=== PATIENT | female | born 1935 | race Two or more races ===

== ENCOUNTER 2017-02-17 10:00 | Outpatient (RCR) ==
--- NOTE | 2017-02-01 14:43 | RS.OPPTEV2 ---
Date of Note: 02/01/17 Visit #: 1 Date of Evaluation: 02/01/17 Payer Source: MEDICARE Surgery Performed?: No Treatment Diagnosis: Left lower back pain History of Condition/Mechanism of Injury:: Patient began having lower back pain in December. She is not sure of what she did but her and her nadlvarv-gr-tnr think it maybe the way she has been sitting in her recliner at home. She lives alone but has children who live close by and check on her and help her often. She reports she hurts unless she is lying down. Sitting is better but standing or walking she has sharp pain which is more on the left lumbar area. She states she fell ~ 2 weeks ago and this may have contributed to her back pain. She states she was able to get herself up off of the ground. She was taken to the ER by family 2-3 weeks ago. No fx was found at that time. Prior Level of Function.....Patient was independent with: ADL's, Self Care, Work /Vocation, Caregiving, Ambulation/Mobility, Community Integration/Access Functional Limitations: Lifting, Carrying, Standing, Bending, Squatting, Ambulation Treatment Side (optional): Bilateral Medical History Medical History: Hypertension, Arthritis Surgical History: Cholecystectomy, Hysterectomy, , CABG Surgical History Comments:: Pacemaker, cardiac stent, CABG Hx Home Medications: Lasix, Plavix, Lisinipril, Metapropranolm, Vit D & muscle relaxer Pain Assessment - Pain Description Pain Location: Center of lumbar spine and left paraspinals > right. Pain Description: Sharp Current Pain Intensity: 0/10 Worst Pain Intensity: Has to lay down Functional Outcome Measure Oswestry LBP: 19 (38% disability) - G Codes & Severity Modifier G Codes & Modifier: Mobility, Walking & Moving Around: Current: CJ. Goal: CI Source of G Code score: Oswestry LBP Scale. Observation - Observation Inspection: Patient was accompanied by her vezywwnu-lf-kfk and who assists her with her medication. She states she gave the pt a muscle relaxer this morning not thinking about her PT appointment today. Pt was very lethargic and evaluation today was limited. Posture: Increased Lumbar Lordosis Gait - Gait Pattern General Gait Pattern Observation: Antalgic Gait, Uneven [place], Decrease Stride Lngth (R), Decrease Stride Lngth (L) General Muscle Strength: LLE strength grossly 3/5 in the hips and knee 4/5. The RLE was 4+/5 grossly. - ROM Lumbar Flexion: Hand reach to Mid-Thighs Comments: Increased pain with all movements. Palpation Palpation Findings: Tenderness (Moderate pain to palpation of the lumbar paraspinals L > R. ) Sensation - Sensation Sensation Description: Within Normal Limits Balance - Standing Balance Static Standing Balance: Good Dynamic Standing Balance: Fair Interventions - Exercise/Activities/Manual Therapy Exercises/Activities: na Manual Therapy: na - Charges Total Direct Minutes: 45 Total Treatment Time: 45 Procedures billed for this date of service:: PT Mirna (Medium) Assessment Assessment: Lower back pain causing decreased safety with mobility and balance. Recent fall reported in her yard. Pain with lumbar ROM and weakness of core and BLEs. Patient Education: Education of diagnosis, Body/Joint mechanics, Home Safety, Education of Plan of Care Rehab Potential: Good Short Term Goals Goal #1: Independent with basic HEP for lumbar ROM. Goal to be met by: 02/18/17 Goal #2: Pain is able to dress herself w/o increased LBP Goal to be met by: 02/18/17 Goal #3: Patient walks in her home with only minimal LBP. Goal to be met by: 02/18/17 [employer] Goals Goal #1: Oswestry LBP Score decreased to 10. Goal to be met by: 03/04/17 Goal #2: Patient ambulates with normalized gt pattern and equal WB/WS on BLEs. Goal to be met by: 03/04/17 Goal #3: Independent in at [place] to continue with spine health. Goal to be met by: 03/04/17 Goal #4: 5/5 BLE strength to improve stability in WBing Goal to be met by: 03/04/17 Plan - Treatment to be Provided Procedures: Therapeutic Exercises, Therapeutic Activity, Gait Training, Manual Therapy, Patient Education Modalities: Electrical Stimulation, Ultrasound/Phonophoresis, Class IV Laser, Cryotherapy, Hot Packs - Treatment Plan Frequency: 3 X week Duration: 6 weeks ORDER # VISITS AND/OR THROUGH DATE: 03/11/2017 - Treatment Code (1) Lower back pain Qualifiers: Chronicity: chronic Back pain laterality: bilateral Sciatica presence: without sciatica Qualified Description: Chronic bilateral low back pain without sciatica Qualifier Code(s): (M54.5) Low back pain, ( G89.29) Other chronic pain (2) Muscle weakness (generalized) Comments: M62.81
--- NOTE | 2017-02-03 14:54 | RS.OPPTDN ---
Subjective Date of Note: 02/03/17 Visit #: 2 Date of Evaluation: 02/01/17 Payer Source: MEDICARE Treatment Diagnosis: Left lower back pain Current Subjective/complaints:: Patient reports the L side of her back still bothers more than the R side.She is pleasant and cooperative. Pain Assessment - Pain Description Pain Location: Center of lumbar spine and left paraspinals > right. Pain Description: Sharp Current Pain Intensity: not rated today - Treatment Modality: Electrical Stim Unattended Parameters/Method Applied: 20 mins. high volt to lumbar area,channel 1 @ 100pv, channel 2 @ 75 pv. Patient Position: Supine - Heat/Cryotherapy Treatment: Hot Pack (concurrent with e-stim) Interventions - Exercise/Activities/Manual Therapy Exercises/Activities: 15 mins. of gentle stretches,SKTC,LTR and hamstring stretches in shortened ROM. Total minutes of Exercise: 15 Manual Therapy: na Total minutes of Manual Therapy: 0 - Charges Total Direct Minutes: 15 Total Treatment Time: 35 Procedures billed for this date of service:: hp,e-stim,ex 1 Assessment: Patient very guarded with exercises today,reports increased pain with any motion today.Discussed with patient and her daughter about focusing more on pain control,and we will progress exercises as she can tolerate. Patient Education: Education of diagnosis, Body/Joint mechanics, Home Exercise Program, Home Safety, Activity Modification, Education of Plan of Care Short Term Goals Goal #1: Independent with basic HEP for lumbar ROM. Goal to be met by: 02/18/17 Goal #2: Pain is able to dress herself w/o increased LBP Goal to be met by: 02/18/17 Goal #3: Patient walks in her home with only minimal LBP. Goal to be met by: 02/18/17 Residential Goals Goal #1: Oswestry LBP Score decreased to 10. Goal to be met by: 03/04/17 Goal #2: Patient ambulates with normalized gt pattern and equal WB/WS on BLEs. Goal to be met by: 03/04/17 Goal #3: Independent in [place] at [place] to continue with spine health. Goal to be met by: 03/04/17 Goal #4: 5/5 BLE strength to improve stability in WBing Goal to be met by: 03/04/17 Plan PLAN OF CARE EXPIRES ON:: 03/11/17 ORDER # VISITS AND/OR THROUGH DATE: 03/11/2017 PLAN: Continue Plan of Care
--- NOTE | 2017-02-07 16:22 | RS.OPPTDN ---
Subjective Date of Note: 02/07/17 Visit #: 3 Date of Evaluation: 02/01/17 Payer Source: MEDICARE Treatment Diagnosis: Left lower back pain Current Subjective/complaints:: Patient's daughter tries to answer questions for Mayi as she replies she "does not know " in reference to pain or if it was better with treatment. She did not take a muscle relaxer today, so her daughter says her gait is better. Pain Assessment - Pain Description Pain Location: Center of lumbar spine and left paraspinals > right. Pain Description: Sharp Current Pain Intensity: not rated today - Treatment Modality: Electrical Stim Unattended Parameters/Method Applied: hivolt 4 large pads @ ch2:90- ch2:115 pk volts x 20 mins to lumbar paraspinals and SI joints channel 1 on R and channel 2 on L. Patient Position: Sitting - Heat/Cryotherapy Treatment: Hot Pack (20 mins with estim) Interventions - Exercise/Activities/Manual Therapy Exercises/Activities: 15 mins. of gentle stretches,SKTC,LTR and hamstring stretches in shortened ROM. Patient performs pillow squeezes. Manual Therapy: na - Charges Total Direct Minutes: 15 Total Treatment Time: 35 Procedures billed for this date of service:: hp, estim ( un), ex Assessment: Patient offers little information about her pain, location, or progress, but daughter reports she sees she is getting up better out of the bed and chair. Patient Education: Education of diagnosis, Body/Joint mechanics, Home Exercise Program, Home Safety, Activity Modification, Education of Plan of Care Patient demonstrates compliance with HEP?: Yes Short Term Goals Goal #1: Independent with basic HEP for lumbar ROM. Goal to be met by: 02/18/17 Goal #2: Pain is able to dress herself w/o increased LBP Goal to be met by: 02/18/17 Goal #3: Patient walks in her home with only minimal LBP. Goal to be met by: 02/18/17 [employer] Goals Goal #1: Oswestry LBP Score decreased to 10. Goal to be met by: 03/04/17 Goal #2: Patient ambulates with normalized gt pattern and equal WB/WS on BLEs. Goal to be met by: 03/04/17 Goal #3: Independent in [place] at [place] to continue with spine health. Goal to be met by: 03/04/17 Goal #4: 5/5 BLE strength to improve stability in WBing Goal to be met by: 03/04/17 Plan PLAN OF CARE EXPIRES ON:: 03/11/17 ORDER # VISITS AND/OR THROUGH DATE: 03/11/2017 PLAN: Progress Exercises
--- NOTE | 2017-02-09 16:24 | RS.OPPTDN ---
Subjective Date of Note: 02/09/17 Visit #: 4 Date of Evaluation: 02/01/17 Payer Source: MEDICARE Treatment Diagnosis: Left lower back pain Current Subjective/complaints:: Patient is able to rise from waiting room chair better and daughter reports improvement with the way she gets around. Pain Assessment - Pain Description Pain Location: Center of lumbar spine and left paraspinals > right. Pain Description: Sharp Current Pain Intensity: not rated today - Treatment Modality: Electrical Stim Unattended Parameters/Method Applied: hivolt 4 large pads controlled seperately from each side @ 110 pk volts x 20 mins Patient Position: Sitting - Heat/Cryotherapy Treatment: Hot Pack (20 mins with estim) Interventions - Exercise/Activities/Manual Therapy Exercises/Activities: 17mins. of gentle stretches,SKTC,LTR, Piriformis, and hamstring stretches bilaterally. Patient performs pillow squeezes. Manual Therapy: na - Charges Total Direct Minutes: 17 Total Treatment Time: 37 Procedures billed for this date of service:: hp, estim (un), ex Assessment: Added pillow squeezes for HEP. Grimacing with pillow squeezes and needed ongoing commands. Patient demonstrating increased ease with sit to stand transfers, but does require slight assistance with supine to sit and cues for log rolling. Ambulations appears more steady and daughter self reports. Unsure if treatment is helping back pain due to vague reports and patient unable to assess correctly. Patient Education: Education of diagnosis, Body/Joint mechanics, Home Exercise Program, Home Safety, Activity Modification, Education of Plan of Care Short Term Goals Goal #1: Independent with basic HEP for lumbar ROM. Goal to be met by: 02/18/17 Goal #2: Pain is able to dress herself w/o increased LBP Goal to be met by: 02/18/17 Goal #3: Patient walks in her home with only minimal LBP. Goal to be met by: 02/18/17 [facility] Goals Goal #1: Oswestry LBP Score decreased to 10. Goal to be met by: 03/04/17 Goal #2: Patient ambulates with normalized gt pattern and equal WB/WS on BLEs. Goal to be met by: 03/04/17 Goal #3: Independent in [place] at [place] to continue with spine health. Goal to be met by: 03/04/17 Goal #4: 5/5 BLE strength to improve stability in WBing Goal to be met by: 03/04/17 Plan PLAN OF CARE EXPIRES ON:: 03/11/17 ORDER # VISITS AND/OR THROUGH DATE: 03/11/2017 PLAN: Progress Exercises
--- NOTE | 2017-02-15 09:42 | RS.OPPTDN ---
Subjective Date of Note: 02/11/17 Visit #: 5 Date of Evaluation: 02/01/17 Payer Source: MEDICARE Treatment Diagnosis: Left lower back pain Current Subjective/complaints:: Patient's daughter reports her Mom is getting up /down better.Patient feels her pain is ,"tolerable". Pain Assessment - Pain Description Pain Location: Center of lumbar spine and left paraspinals > right. Pain Description: Sharp Pain Description: tolerable Current Pain Intensity: not rated today - Treatment Modality: Electrical Stim Unattended Parameters/Method Applied: 20 mins. high volt,channel 1 @ 70 pv,channel 2 @ 75 pv. Patient Position: Sitting - Heat/Cryotherapy Treatment: Hot Pack (concurrent with e-stim) Interventions - Exercise/Activities/Manual Therapy Exercises/Activities: 20 mins. of gentle stretches,SKTC,LTR, Piriformis, and hamstring stretches bilaterally. Total minutes of Exercise: 20 Manual Therapy: na Total minutes of Manual Therapy: 0 HOME EXERCISE PROGRAM: SKTC,pelvic tilts,LTR,hamstring stretches,piriformis stretches(with daughter's assist) as patient has dementia - Charges Total Direct Minutes: 20 Total Treatment Time: 40 Procedures billed for this date of service:: hp,e-stim,ex 1 Assessment: Patient reports stretch discomfort ,but no sharp pain reported.Her daughter reports Mrs. Keating appears to be more mobile at home ,with less assist needed for transfers. Patient Education: Education of diagnosis, Body/Joint mechanics, Home Exercise Program, Home Safety, Activity Modification, Education of Plan of Care Patient demonstrates compliance with HEP?: Yes Short Term Goals Goal #1: Independent with basic HEP for lumbar ROM. Goal to be met by: 02/18/17 Progress towards Goal:: Progressing Goal #2: Pain is able to dress herself w/o increased LBP Goal to be met by: 02/18/17 Progress towards Goal:: Progressing Goal #3: Patient walks in her home with only minimal LBP. Goal to be met by: 02/18/17 Progress towards Goal:: Progressing [facility] Goals Goal #1: Oswestry LBP Score decreased to 10. Goal to be met by: 03/04/17 Goal #2: Patient ambulates with normalized gt pattern and equal WB/WS on BLEs. Goal to be met by: 03/04/17 Goal #3: Independent in [place] at [place] to continue with spine health. Goal to be met by: 03/04/17 Goal #4: 5/5 BLE strength to improve stability in WBing Goal to be met by: 03/04/17 Plan PLAN OF CARE EXPIRES ON:: 03/11/17 ORDER # VISITS AND/OR THROUGH DATE: 03/11/2017 PLAN: Continue Plan of Care
--- NOTE | 2017-02-15 09:44 | RS.CXNS ---
Date of scheduled appointment: 02/15/17 Type: Cancel (Patient has dental appt.)
--- NOTE | 2017-02-17 11:58 | RS.OPPTDN ---
Subjective Date of Note: 02/17/17 Visit #: 6 Date of Evaluation: 02/01/17 Payer Source: MEDICARE Treatment Diagnosis: Left lower back pain Current Subjective/complaints:: Patient expresses she does not know why she is here and when asked, unable to say if she had pain and where. Qotsksom-yd-kab says she seems to get up better, but doesn't really know about her pain. She also says she requested ([id number]) only heat and exercises. Pain Assessment - Pain Description Pain Location: unable to report intensity or location Pain Description: Sharp Pain Description: tolerable - Heat/Cryotherapy Treatment: Hot Pack (20 mins to mid to low back in sitting) Interventions - Exercise/Activities/Manual Therapy Exercises/Activities: 20 mins. of gentle stretches,SKTC,LTR, Piriformis, and hamstring stretches bilaterally. Pillow squeezes, hip abd in hooklying with red tband, bridging (x 5), SAQ 1#, alternate LE lift with 1# each leg all x 10. All therex performed with intermittent grimacing, but at inappropriate timing or range. Mayi needed constant verbal and tactile cueing to perform. Provided HEP and red tband for her children to assist with. Manual Therapy: na HOME EXERCISE PROGRAM: SKTC,pelvic tilts,LTR,hamstring stretches,piriformis stretches(with daughter's assist) as patient has dementia - Charges Total Direct Minutes: 20 Total Treatment Time: 40 Procedures billed for this date of service:: hp, ex Assessment: Patient unable to give responses to back pain or progress with sessions so far. Zcgactoc-mp-qow assesses that Mayi is rising from therapy chairs better, but of course is not able to speak for her pain level. Patient needed constant cueing during exercises today. Some where given for home for her adult children to help her with when they are at her house. She lives alone , but family is fairly close by. She would benefit from home health services to assess any safety concerns around her home and perhaps other services. Patient Education: Education of diagnosis, Body/Joint mechanics, Home Exercise Program, Home Safety, Activity Modification, Education of Plan of Care Short Term Goals Goal #1: Independent with basic HEP for lumbar ROM. Goal to be met by: 02/18/17 Progress towards Goal:: Progressing Goal #2: Pain is able to dress herself w/o increased LBP Goal to be met by: 02/18/17 Progress towards Goal:: Progressing Goal #3: Patient walks in her home with only minimal LBP. Goal to be met by: 02/18/17 Progress towards Goal:: Progressing Nursing Professor Goals Goal #1: Oswestry LBP Score decreased to 10. Goal to be met by: 03/04/17 Goal #2: Patient ambulates with normalized gt pattern and equal WB/WS on BLEs. Goal to be met by: 03/04/17 Goal #3: Independent in [place] at [place] to continue with spine health. Goal to be met by: 03/04/17 Goal #4: 5/5 BLE strength to improve stability in WBing Goal to be met by: 03/04/17 Plan PLAN OF CARE EXPIRES ON:: 03/11/17 ORDER # VISITS AND/OR THROUGH DATE: 03/11/2017 PLAN: Plan for Discharge
--- NOTE | 2017-03-11 15:18 | RS.OPPTDC ---
Date of Discharge: 02/17/17 Date of Evaluation: 02/01/17 Number of Visits: 6 Treatment Diagnosis: Left lower back pain Current Complaints/Gains: Patient is unable to give subjective feedback to questions pertaining to pain level or perceived improvement or lack of improvement with mobility. She has stated on most visits that she does not know why she is here for therapy. Patient's ivostxur-fy-sdy reports that Ms. Keating's transfers seem to have improved. Pain Assessment - Pain Description Pain Location: unable to report intensity or location Functional Outcome Measure Oswestry LBP: 19 - G Codes & Severity Modifier G Codes & Modifier: Mobility D/C CJ. Mobility goal CI Source of G Code score: Oswestry LBP scale ( same as evaluation) Interventions - Exercise/Activities/Manual Therapy Exercises/Activities: NA Manual Therapy: na HOME EXERCISE PROGRAM: SKTC,pelvic tilts,LTR,hamstring stretches,piriformis stretches(with daughter's assist) as patient has dementia - Charges Total Direct Minutes: NA Total Treatment Time: NA Procedures billed for this date of service:: NA Assessment Assessment: Ms. Keating consistently demonstrates difficulty giving subjective feedback regarding her pain level. She does not seem to know why she is having therapy. She has required constant verbal cues with exercises, as she shows very little carry over from one visit to the next. She has exercises for her family to help her with. She lives alone and she shows the need for Home Health services for safety and education in the home. We are unable to justify continued therapy in this setting due to lack of carry over with instructions and lack of information subjectively due to cognitive status. Short Term Goals Goal #1: Independent with basic HEP for lumbar ROM. Goal to be met by: 02/18/17 Progress towards Goal:: Met (with help of family) Goal #2: Pain is able to dress herself w/o increased LBP Goal to be met by: 02/18/17 Progress towards Goal:: Not Met Goal #3: Patient walks in her home with only minimal LBP. Goal to be met by: 02/18/17 Progress towards Goal:: Not Met Nursing Home Goals Goal #1: Oswestry LBP Score decreased to 10. Goal to be met by: 03/04/17 Progress towards goal: Not Met Goal #2: Patient ambulates with normalized gt pattern and equal WB/WS on BLEs. Goal to be met by: 03/04/17 Progress towards goal: Not Met Goal #3: Independent in [place] at [place] to continue with spine health. Goal to be met by: 03/04/17 Progress towards goal: Not Met Goal #4: 5/5 BLE strength to improve stability in WBing Goal to be met by: 03/04/17 Progress towards goal: Not Met Plan Reason for Discharge:: Lack of Progress Comments: Recommend Home Health Physical Therapy at this time.
== END 2017-02-18 ==
PROVIDERS: ATTEND Family Medicine
DX: M54.41 Lumbago with sciatica, right side (principal)

== ENCOUNTER 2018-02-09 12:45 | Outpatient (CLI) ==
--- NOTE | 2018-02-09 13:31 | DI ---
EXAM: Left hand three-view HISTORY: Injury COMPARISON: None FINDINGS: No fracture or dislocation. Moderate scattered osteoarthritic change throughout the hand. No focal soft tissue abnormality. IMPERSSION: 1. No fracture or dislocation. 2. Moderate osteoarthritis.
== END 2018-02-09 12:46 | disposition home or self-care (01) ==
LOC: RAD 12:45
PROVIDERS: ATTEND Family Medicine
DX: S69.92XA Unspecified injury of left wrist, hand and finger(s), initial encounter (principal)